=== PATIENT | male | born 1995 | race Caucasian/White ===

== ENCOUNTER → 2017-03-04 | Outpatient (CLI) | payer BC ==
[~2017-03-04] MED LIST: LISD70CA PO; ONDA4TAB46 PO; RXC5 PO
--- NOTE | 2017-03-04 11:52 | DIAGNOSTIC IMAGING REPORT ---
KUB CLINICAL HISTORY: LEFT URETERAL STONE ureteral calculus COMPARISON STUDY: 04/28/2016 FINDINGS: The soft tissues, psoas shadows, renal outlines and intestinal gas pattern appear normal. There is no evidence for bowel obstruction. No abnormal abdominal calcifications are seen. IMPRESSION: Normal study. The above report was generated using voice recognition software. It may contain grammatical, syntax or spelling errors. Electronically signed by: Gopi Mcclelland M.D. 03/04/2017 11:50 AM Dictated Date/Time: 03/04/2017 11:50 AM
== END | disposition home or self-care (01) ==
LOC: C.RAD 11:24
PROVIDERS: ATTEND Nurse Practitioner Family
DX: N20.1 Calculus of ureter (principal)